=== PATIENT | female | born 1940 | race Caucasian/White ===

== ENCOUNTER → 2016-11-10 | Outpatient (CLI) | payer MEDICARE, OTHER ==
[~2016-11-10] MED LIST: ASCO-296 PO; ASPI-611 PO; CALC-586 PO; FLUT1DIS4; METF-47 PO; ONDA4TAB4 PO; SIMV20TA89 PO; SOTA80TA42 PO; [UNRECOGNIZED DRUG - CODE] IH
--- NOTE | 2016-11-10 12:38 | DI ---
Indication: ITS.REASON: G44.329 Chronic post-traumatic headache, not intractable PROCEDURE: CT HEAD W/O CONTRAST: Encounter: Initial Comparison: March 09, 2013 Technique: Axial CT images through the head were performed without contrast. Iterative Reconstruction dose reducing technique was utilized. FINDINGS: Moderate generalized atrophy. The ventricles are of normal size, shape, and contour for the patient's age. There are scattered areas of low attenuation in the white matter which most likely represent changes from chronic microvascular ischemia. The brainstem, cerebellum, and cerebral hemispheres otherwise have a normal morphology and CT attenuation. There is no evidence of midline displacement. No hemorrhage, signs of acute territorial stroke, mass effect, mass lesions, or edema is evident. The visualized portions of the skull base, midface, and calvarium demonstrate no abnormality. The paranasal sinuses are well aerated and free of significant disease. The tympanic and mastoid cavities appear normal. IMPRESSION: No acute intracranial abnormality or hemorrhage. Stable head CT. .
== END ==
LOC: IMA 11:59
PROVIDERS: ATTEND Family Medicine
DX: G44.329 Chronic post-traumatic headache, not intractable (principal)